=== PATIENT | female | born 1945 | race Caucasian/White ===

== ENCOUNTER 2018-12-13 17:05 | Emergency (ER) | payer MEDICARE, OTHER ==
[~2018-12-13] VITALS: Wt 80.0 kg
--- NOTE | 2018-12-13 18:07 | ERD ---
ER Documentation Chief Complaint Chief Complaint ABD PAIN HPI The patient is a 73-year-old female, presenting to the ER because of vague epigastric abdominal pain intermittently for the last 3 days with diarrhea. She denies fever, chills, neck pain, chest pain, dyspnea, dysuria. She had similar symptoms previously. She does not smoke nor drink Past medical history: Gastritis, osteoarthritis Past surgical history: Cholecystectomy, hysterectomy ROS All systems reviewed and are negative except as per history of present illness. Medications Home Meds Active Scripts Pantoprazole* (Protonix*) 40 Mg Tablet.dr, 40 MG PO DAILY, #20 TAB Prov:ILDEFONSO LOVE MD 12/13/18 Physical Exam Vitals Vital Signs Date Temp Pulse Resp B/P (MAP) Pulse Ox O2 O2 Flow FiO2 Time Delivery Rate 12/13/18 98.2 100 20 142/78 95 17:09 (99) Physical Exam Const: No acute distress. Head: Atraumatic. Eyes: Normal Conjunctiva. ENT: Normal External Ears, Nose and Mouth. Neck: Full range of motion. No meningismus. Resp: Clear to auscultation bilaterally. Cardio: Regular rate and rhythm. Abd: Soft, non distended, normal bowel sounds, vague and diffuse abdominal tenderness, no rigidity/rebound/CVA tenderness Skin: No petechiae or rashes. Back: No midline or flank tenderness. Ext: No cyanosis, or edema. Neur: Awake and alert. No focal deficit Psych: Normal Mood and Affect. Result Diagram: 12/13/182 12/13/18 1852 Results 24 hrs Laboratory Tests Test 12/13/18 18:52 12/13/18 19:06 White Blood Count 9.6 10^3/ul Red Blood Count 4.23 10^6/ul Hemoglobin 13.4 g/dl Hematocrit 41.1 % Mean Corpuscular Volume 97.2 fl Mean Corpuscular Hemoglobin 31.7 pg Mean Corpuscular Hemoglobin Concent 32.6 g/dl Red Cell Distribution Width 15.6 % Platelet Count 245 10^3/UL Mean Platelet Volume 10.8 fl Immature Granulocytes % 1.000 % Neutrophils % 55.8 % Lymphocytes % 29.2 % Monocytes % 10.9 % Eosinophils % 1.9 % Basophils % 1.2 % Nucleated Red Blood Cells % 0.0 /100WBC Immature Granulocytes # 0.100 10^3/ul Neutrophils # 5.4 10^3/ul Lymphocytes # 2.8 10^3/ul Monocytes # 1.1 10^3/ul Eosinophils # 0.2 10^3/ul Basophils # 0.1 10^3/ul Nucleated Red Blood Cells # 0.0 10^3/ul Sodium Level 144 mmol/L Potassium Level 4.4 mmol/L Chloride Level 110 mmol/L Carbon Dioxide Level 28 mmol/L Anion Gap 6 Blood Urea Nitrogen 11 mg/dl Creatinine 0.61 mg/dl Est Glomerular Filtrat Rate mL/min mL/min Glucose Level 90 mg/dl Calcium Level 9.1 mg/dl Total Bilirubin 0.5 mg/dl Direct Bilirubin 0.00 mg/dl Indirect Bilirubin 0.5 mg/dl Aspartate Amino Transf (AST/SGOT) 26 IU/L Alanine Aminotransferase (ALT/SGPT) 44 IU/L Alkaline Phosphatase 124 IU/L Total Protein 7.8 g/dl Albumin 4.0 g/dl Globulin 3.80 g/dl Albumin/Globulin Ratio 1.05 Lipase 136 U/L Bedside Urine pH (LAB) 5.5 Bedside Urine Protein (LAB) 1+ Bedside Urine Glucose (UA) Negative Bedside Urine Ketones (LAB) 1+ Bedside Urine Blood Negative Bedside Urine Nitrite (LAB) Negative Bedside Urine Leukocyte Esterase (L Negative Current Medications Medications Dose Sig/Christiano Start Time Status Last (Trade) Ordered Route PRN Stop Time Admin Dose Reason Admin Morphine 2 mg ONCE STAT 12/13/18 DC 12/13/18 Sulfate IV 18:18 12/13/18 19:05 (morphine) 18:20 Ondansetron 4 mg ONCE STAT 12/13/18 DC 12/13/18 HCl (Zofran IV 18:18 12/13/18 19:05 Inj) 18:20 Procedures/[place] [id number] Radiology Main Line: [phone] DIAGNOSTIC IMAGING REPORT Patient: ERIC MURPHY : 1945 Age: 73 Sex: F MR #: [id number] DOS: 12/13/18 1818 Ordering MD: ILDEFONSO LOVE MD Location: E/R Room/Bed: PROCEDURE: CT Abdomen and Pelvis without contrast. CLINICAL INDICATION: Gradually worsening abdominal pain for 3 days. TECHNIQUE: A CT scan of the abdomen and pelvis was performed without intravenous contrast. Coronal and sagittal reformatted images were generated. DICOM images are available. Images were reviewed on a high-resolution PACS workstation. CTDIvol: 16.38 mGy. DLP: 899.67 mGy-cm. One or more of the following dose reduction techniques were used: - Automated exposure control. - Adjustment of the mA and/or kV according to patient size. - Use of iterative reconstruction technique. COMPARISON: None. FINDINGS: There are mild atelectatic changes in the lower lungs. Evaluation of the abdominal and pelvic viscera is limited by the lack of oral and intravenous contrast. There are calcified granulomas in the liver and spleen. The patient is status post cholecystectomy. There is extrahepatic biliary ductal dilatation (CBD: 1.3 cm), probably due to absence of the gallbladder. The spleen is not enlarged. No pancreatic lesion is identified and there is no pancreatic ductal dilatation. The adrenal glands are unremarkable. The kidneys are normal in size. There is no perinephric fat stranding. No hydronephrosis is seen. No urinary stone is identified. The second portion of the duodenum is mildly thickened, with perienteric inflammation. The small and large bowel are normal in caliber. There is no bowel wall thickening. There is an appendicolith in the appendiceal tip. No jimi endiceal inflammation is identified. The urinary bladder is unremarkable. The patient is status post hysterectomy. No adnexal mass is seen. No lymphadenopathy is identified. There is no ascites. No pneumoperitoneum is seen. There are mild arterial calcifications. No suspicious osseous lesion is identified. There is grade 1 degenerative L4 anterolisthesis and severe spinal canal stenosis at L4-L5. There is mild bilateral hip joint arthrosis. IMPRESSION: Mildly thickened appearance of the second portion of the duodenum with perienteric inflammatory changes. Differential considerations for this finding include peptic ulcer disease and a focal duodenitis. No obstructive uropathy or urinary stone. No evidence of appendicitis. There is an appendicolith in the appendiceal tip. Status post cholecystectomy and hysterectomy. Mild atherosclerotic calcifications. Grade 1 degenerative L4 anterolisthesis and severe spinal canal stenosis at L4- L5. Mild bilateral hip joint arthrosis. RPTAT: HTAR .Martin Mata MD, MD Date Time Electronically viewed and signed by .Martin Mata MD, MD on 12/13/2018 20:42 .R/ CC: ILDEFONSO LOVE MD [phone] MEDICAL MAKING DECISION: The patient is a 72-year-old female, presenting with abdominal pain of unclear etiology, was treated with morphine 2 mg IV for pain, Zofran 4 mg IV for nausea with good response, is stable for outpatient follow-up The differential diagnoses considered include but are not limited to choledocholithiasis, cholangitis, pancreatitis, hepatitis, gastritis, peptic ulcer disease, gastric ulcer, appendicitis, cystitis, diverticulitis, partial small bowel obstruction. Departure Diagnosis: Primary Impression: Abdominal pain Condition: Good Comments She was discharged with Protonix I discussed the findings with the patient. I advised the patient to follow-up with the primary physician in about 2-3 days for reevaluation and referral to gastroenterology for upper endoscopy, sooner if needed and return if any concern. Disclaimer: Inadvertent spelling and grammatical errors are likely due to EHR/dictation software use and do not reflect on the overall quality of patient care. Also, please note that the electronic time recorded on this note does not necessarily reflect the actual time of the patient encounter. ILDEFONSO LOVE MD Dec 13, 2018 18:07
[2018-12-13] MEDS ORDERED: morphine 2 MG INJ IV STA (18:18)
[2018-12-13] MEDS ORDERED: ONDANSETRON 4 MG INJ IV STA (18:18)
[2018-12-13] MEDS ORDERED: PANT40TA3 PO (20:50)
[2018-12-13 21:07] VITALS: BP 134/72; PULSE 78; RESP 14
== END 2018-12-13 21:11 | disposition home or self-care (01) ==
LOC: E/R 17:05
DX: R10.13 Epigastric pain (principal)
CPT/HCPCS: 36415; 74176; 80053; 81003; 83690; 85025; 96374; 96375; 99285; J2270; J2405